=== PATIENT | male | born 1935 | race Caucasian/White ===

== ENCOUNTER → 2018-11-27 | Outpatient (CLI) | payer MEDICARE ==
[2018-11-27 14:02] LABS: Source, Urine Clean Catch
[2018-11-27 14:33] LABS: Bilirubin, Urine Neg (Neg); Blood, Urine Neg (Neg); Glucose Qualitative, Urine 4+ (Neg); Ketones, Urine Neg (Neg); Leukocyte Esterase, Urine Neg (Neg); Nitrite, Urine Neg (Neg); Protein, Urine 3+ (Neg); Urobilinogen, Urine NORM (Normal)
[2018-11-27 14:44] LABS: Appearance, Urine Clear (Clear); Color, Urine Yellow (P-Yellow)
[2018-11-27 14:46] LABS: Bacteria Few /hpf; Red Blood Cells, Urine Not Seen /hpf (0-2); Squamous Epithelial Cells Not Seen /hpf (Few); White Blood Cells, Urine Not Seen /hpf (0-5)
== END | disposition home or self-care (01) ==
LOC: LAB SHORT 13:58 → LAB 13:58
PROVIDERS: Family Medicine
DX: N39.0 Urinary tract infection, site not specified (principal)
CPT/HCPCS: 81001

== ENCOUNTER → 2020-06-03 | Outpatient (CLI) | payer MEDICARE ==
[2020-06-03 19:54] LABS: Albumin, Blood 4.1 g/dL (3.4-5.0); Albumin/Globulin Ratio 1.2 (0.8-1.8); Bilirubin, Total 0.3 mg/dL (0.1-1.0); Bun/Creatinine Ratio 16.3 (12.0-20.0); Calcium, Blood 9.3 mg/dL (8.5-10.1); Creatinine, Blood 1.47 mg/dL (0.60-1.20); Globulin, Blood 3.4 g/dL (2.2-4.0); Potassium, Blood 4.7 mmol/L (3.5-5.5); Total Protein, Blood 7.5 g/dL (6.4-8.2)
== END | disposition home or self-care (01) ==
LOC: LAB 13:42 → LAB SHORT 13:42
PROVIDERS: Family Medicine
DX: E11.9 Type 2 diabetes mellitus without complications (principal); I10 Essential (primary) hypertension
CPT/HCPCS: 80053

== ENCOUNTER → 2020-06-24 | Outpatient (CLI) | payer MEDICARE, OTHER ==
[2020-06-24 19:27] LABS: BASOPHILS ABSOLUTE AUTO 0.03 K/mm3 (0.00-0.23); BASOPHILS PERCENT AUTO 1 % (0-2); EOSINOPHILS ABSOLUTE AUTO 0.03 K/mm3 (0.00-0.68); EOSINOPHILS PERCENT AUTO 1 % (0-6); Hematocrit 38.2 % (37.0-53.0); IMMATURE GRAN ABSOLUTE AUTO 0.06 K/mm3 (0.00-0.10); IMMATURE GRAN PERCENT AUTO 2 % (0-1); LYMPHOCYTES ABSOLUTE AUTO 1.13 K/mm3 (0.84-5.20); LYMPHOCYTES PERCENT AUTO 32 % (21-46); MONOCYTES ABSOLUTE AUTO 0.47 K/mm3 (0.16-1.47); MONOCYTES PERCENT AUTO 14 % (4-13); Mean Corpuscular HGB 28.8 pg (26.0-34.0); Mean Corpuscular HGB Conc 31.4 g/dL (31.5-36.5); Mean Corpuscular Volume 92 fL (80-100); Mean Platelet Volume 10.1 fL (9.1-12.4); NEUTROPHILS ABSOLUTE AUTO 1.77 K/mm3 (1.96-9.15); NEUTROPHILS PERCENT AUTO 51 % (41-73); Platelet Count 219 K/mm3 (150-400); RDW Coefficient Variation 16.3 % (11.7-14.2); RDW Standard Deviation 53.6 fL (35.1-46.3); Red Blood Cell Count 4.16 M/mm3 (4.30-5.90); White Blood Cell Count 3.49 K/mm3 (4.00-11.30)
== END | disposition home or self-care (01) ==
LOC: LAB 19:01 → LAB SHORT 19:01
PROVIDERS: Family Medicine
DX: E11.9 Type 2 diabetes mellitus without complications (principal); I10 Essential (primary) hypertension; G30.1 Alzheimer's disease with late onset; F02.81 Dementia in other diseases classified elsewhere, unspecified severity, with behavioral disturbance
CPT/HCPCS: 83036; 85025

== ENCOUNTER 2020-08-20 11:30 | Inpatient (IN) | payer MEDICARE, OTHER ==
[~2020-08-20] VITALS: Ht 180.3 cm; Wt 81.7 kg
[2020-08-20 13:01] LABS: BASOPHILS ABSOLUTE AUTO 0.04 K/mm3 (0.00-0.23); BASOPHILS PERCENT AUTO 0 % (0-2); EOSINOPHILS ABSOLUTE AUTO 0.02 K/mm3 (0.00-0.68); EOSINOPHILS PERCENT AUTO 0 % (0-6); Hematocrit 36.8 % (37.0-53.0); Hemoglobin 11.6 g/dL (13.5-17.5); IMMATURE GRAN ABSOLUTE AUTO 0.18 K/mm3 (0.00-0.10); IMMATURE GRAN PERCENT AUTO 2 % (0-1); LYMPHOCYTES ABSOLUTE AUTO 1.04 K/mm3 (0.84-5.20); LYMPHOCYTES PERCENT AUTO 9 % (21-46); MONOCYTES ABSOLUTE AUTO 2.04 K/mm3 (0.16-1.47); MONOCYTES PERCENT AUTO 17 % (4-13); Mean Corpuscular HGB 29.5 pg (26.0-34.0); Mean Corpuscular HGB Conc 31.5 g/dL (31.5-36.5); Mean Corpuscular Volume 94 fL (80-100); NEUTROPHILS ABSOLUTE AUTO 8.63 K/mm3 (1.96-9.15); NEUTROPHILS PERCENT AUTO 72 % (41-73); Platelet Count 256 K/mm3 (150-400); RDW Coefficient Variation 16.1 % (11.7-14.2); RDW Standard Deviation 54.3 fL (35.1-46.3); Red Blood Cell Count 3.93 M/mm3 (4.30-5.90); White Blood Cell Count 11.95 K/mm3 (4.00-11.30)
[2020-08-20 13:27] LABS: Alanine Aminotransfer (ALT/SGP 26 U/L (12-78); Albumin, Blood 3.2 g/dL (3.4-5.0); Albumin/Globulin Ratio 0.8 (0.8-1.8); Alk Phos 124 U/L (50-136); Anion Gap 8 mmol/L (6-16); Aspartate Aminotrans (AST/SGOT 12 U/L (12-37); Bilirubin, Total 0.9 mg/dL (0.1-1.0); Blood Urea Nitrogen 35 mg/dL (8-24); Bun/Creatinine Ratio 19.4 (12.0-20.0); CO2, Blood 21 mmol/L (21-32); Calcium, Blood 8.7 mg/dL (8.5-10.1); Chloride, Blood 111 mmol/L (98-108); Ethanol (Alcohol), Blood, Med <3 mg/dL; Globulin, Blood 4.1 g/dL (2.2-4.0); Glomerular Filtration Rate 38 (60-); Glucose, Blood 264 mg/dL (70-99); Potassium, Blood 4.9 mmol/L (3.5-5.5); Sodium, Blood 140 mmol/L (136-145); Total Protein, Blood 7.3 g/dL (6.4-8.2); Troponin I <0.015 ng/mL (0.000-0.040)
[2020-08-20 15:31] LABS: Source, Urine Clean Catch
[2020-08-20 15:35] LABS: Appearance, Urine Clear (Clear); Bilirubin, Urine Neg (Neg); Blood, Urine Neg (Neg); Color, Urine Amber (P-Yellow); Glucose Qualitative, Urine Neg (Neg); Ketones, Urine Neg (Neg); Leukocyte Esterase, Urine 1+ (Neg); Nitrite, Urine Neg (Neg); Protein, Urine 2+ (Neg); Specific Gravity, Urine 1.025 (1.003-1.022); Urobilinogen, Urine NORM (Normal)
[2020-08-20 15:41] LABS: Red Blood Cells, Urine 0-2 /hpf (0-2)
[2020-08-20 15:42] LABS: Bacteria Few /hpf; Mucus Light (0-Heavy); Squamous Epithelial Cells Rare /hpf (Few)
[2020-08-20 15:48] LABS: U Amphetamine Screen Not Detected; U Barbituate Screen Not Detected; U Benzodiazapine Screen DETECTED; U Buprenorphine Screen Not Detected; U Cannabinoids Screen Not Detected; U Cocaine Screen Not Detected; U Methadone Screen Not Detected; U Methamphetamine Screen Not Detected; U Opiates Screen Not Detected; U Oxycodone Screen Not Detected; U Phencyclidine Screen Not Detected; U Propoxyphene Screen Not Detected
[2020-08-20] MEDS ORDERED: PROZAC40 MG PO (16:33)
[2020-08-20] MEDS ORDERED: LABE100 PO (16:34)
[2020-08-20] MEDS ORDERED: ACYCLOVIR800 MG PO (16:53)
[2020-08-20] MEDS ORDERED: MELATONIN1 M1 PO (16:55)
[2020-08-20] MEDS ORDERED: ASPI81CH PO (16:56)
[2020-08-20] MEDS ORDERED: TOPICAINE113 GM TOP (16:58)
[2020-08-20] MEDS ORDERED: LISI20 PO (16:59)
[2020-08-20] MEDS ORDERED: Seroquel Xr50 MG PO (16:59)
[2020-08-20] MEDS ORDERED: IBUP400 PO (16:59)
[2020-08-20] MEDS ORDERED: TRAM50 PO (16:59)
[2020-08-20] MEDS ORDERED: RISPERIDONE2 M2 PO (16:59)
[2020-08-20] MEDS ORDERED: Nitrofurantoin100 M1 PO (16:59)
[2020-08-20] MEDS ORDERED: MELA3 PO (17:28)
[2020-08-20] MEDS ORDERED: RISPERIDONE1 M2 PO (17:30)
[2020-08-20] MEDS ORDERED: MIRALAX17 GM PO (17:32)
[2020-08-20] MEDS ORDERED: ACET325 PO (17:33)
[2020-08-20] MEDS ORDERED: ALUM-MAG HYDROX30 ML PO (17:33)
[2020-08-20] MEDS ORDERED: LOPE2C PO (17:34)
[2020-08-20] MEDS ORDERED: BISA10S PR (17:34)
[2020-08-20] MEDS ORDERED: DULCOLAX400 MG/5 M PO (17:35)
[2020-08-20] MEDS ORDERED: NYSTATIN-TRIAMC15 GM TOP (17:36)
[2020-08-20] MEDS ORDERED: TRIPLE ABX TOP (17:36)
[2020-08-20 18:19] LABS: Adenovirus Not Detected (NOT DETECT); Bordetella pertussis Not Detected (NOT DETECT); Chlamydophila pneumoniae Not Detected (NOT DETECT); Coronavirus 229E Not Detected (NOT DETECT); Coronavirus HKU1 Not Detected (NOT DETECT); Coronavirus NL63 Not Detected (NOT DETECT); Coronavirus OC43 Not Detected (NOT DETECT); Human Metapneumovirus Not Detected (NOT DETECT); Human Rhinovirus/Enterovirus Not Detected (NOT DETECT); Influenza A/2009-H1 Not Detected (NOT DETECT); Influenza A/H1 Not Detected (NOT DETECT); Influenza A/H3 Not Detected (NOT DETECT); Influenza B Not Detected (NOT DETECT); Mycoplasma pneumoniae Not Detected (NOT DETECT); Parainfluenza Virus 1 Not Detected (NOT DETECT); Parainfluenza Virus 2 Not Detected (NOT DETECT); Parainfluenza Virus 3 Not Detected (NOT DETECT); Parainfluenza Virus 4 Not Detected (NOT DETECT); Respiratory Syncytial Virus Not Detected (NOT DETECT); SARS-Cov-2 (COVID-19), BioFire Not Detected (NOT DETECT)
--- NOTE | 2020-08-21 04:29 | NUR ---
SHIFT SUMMARY ASSUMED CARE OF PT AT 1950. PT IS ONLY ALERT TO SELF. PT GIOVANI OUT "HEY" WHEN PEOPLE PASS HIS ROOM OR COME INTO HIS ROOM BUT HE CANNOT MAKE HIS NEEDS KNOWN. PT CAN ANSWER YES/NO QUESTIONS. PT WILL CRY OUT WHEN ROLLED OVER. HEART SOUNDS REGULAR, LUNG SOUNDS HAVE CRACKLES IN THE BASES. PT WAS INCONTIENT OF URINE T/O THE NIGHT. PT HAS SHINGLES ON HIS CHEST, THEY ARE CRUSTED OVER, MEDICATED PER EMAR. PT HAS GENERALISED SWELLING T/O HIS BODY. EXTREMITIES ARE DISCOLORED AND COOL TO TOUCH. PT HAS VERY DRY SKIN. PT WAS ABLE TO TAKE MEDS WHOLE WITH APPLE SAUCE BUT POCKETED ONE MEDICATED AND SPIT IT OUT LATER, PT ABLE TO DRINK WATER W/O A STRAW. CALL LIGHT IN REACH, BED IN LOWEST POSITON.
[2020-08-21 04:58] LABS: BASOPHILS ABSOLUTE AUTO 0.02 K/mm3 (0.00-0.23); BASOPHILS PERCENT AUTO 0 % (0-2); EOSINOPHILS ABSOLUTE AUTO 0.03 K/mm3 (0.00-0.68); EOSINOPHILS PERCENT AUTO 0 % (0-6); Hematocrit 33.4 % (37.0-53.0); Hemoglobin 10.8 g/dL (13.5-17.5); IMMATURE GRAN ABSOLUTE AUTO 0.07 K/mm3 (0.00-0.10); IMMATURE GRAN PERCENT AUTO 1 % (0-1); LYMPHOCYTES ABSOLUTE AUTO 1.26 K/mm3 (0.84-5.20); LYMPHOCYTES PERCENT AUTO 15 % (21-46); MONOCYTES ABSOLUTE AUTO 1.46 K/mm3 (0.16-1.47); MONOCYTES PERCENT AUTO 18 % (4-13); Mean Corpuscular HGB Conc 32.3 g/dL (31.5-36.5); Mean Corpuscular Volume 90 fL (80-100); Mean Platelet Volume 9.6 fL (9.1-12.4); NEUTROPHILS ABSOLUTE AUTO 5.43 K/mm3 (1.96-9.15); NEUTROPHILS PERCENT AUTO 66 % (41-73); Platelet Count 252 K/mm3 (150-400); RDW Coefficient Variation 15.9 % (11.7-14.2); RDW Standard Deviation 51.8 fL (35.1-46.3); Red Blood Cell Count 3.72 M/mm3 (4.30-5.90); White Blood Cell Count 8.27 K/mm3 (4.00-11.30)
[2020-08-21 05:15] LABS: Bun/Creatinine Ratio 22.2 (12.0-20.0); Calcium, Blood 8.6 mg/dL (8.5-10.1); Creatinine, Blood 1.44 mg/dL (0.60-1.20)
--- NOTE | 2020-08-21 11:48 | NUR ---
[facility] NURSE CONTACT JACKI VALENZUELA FOR [facility] CELL# [phone]
--- NOTE | 2020-08-21 18:24 | NUR ---
SHIFT SUMMARY PT MORE AWAKE & ALERT THIS AFTERNOON. ALERT TO SELF ONLY. CALLING OUT INTO THE HALLWAY, LOUDLY. PT UNABLE TO BE REORIENTED. DR. STEPHENSON NOTIFIED OF PT BEHAVIOR. ORDER FOR 5MG SL ZYPREXA OBTAINED. PT REPOSITIONED IN BED T/O SHIFT. VERY STIFF WITH TURNING. PT STARTED TO SPIT WHEN BEING FED THIS AFTERNOON. PRN ZYPREXA GIVEN. [facility] HAD A BM YESTERDAY. NO OTHER ACUTE CHANGES IN ASSESSMENT AT THIS TIME. VS REVIEWED. PT REFUSED DINNER, BUT RESTING IN BED CURRENLTY. BED ALARM ON.
--- NOTE | 2020-08-22 00:43 | NUR ---
08/21/201934 PT RESTING COMFORTABLY AND QUIETLY IN BED WITH HEAD OF BED AT SEMI FOWLERS. 0030 RESTING QUIETLY.
--- NOTE | 2020-08-22 04:54 | NUR ---
SHIFT SUMMARY: 85 Y/O MALE RESTED COMFORTABLY ALL SHIFT WITH NO YELLINHG OUTBURSTS IN INAPPROPRIATE BEHAVIOR NOTED; PT NOTED HAVE DIFFICULTY SWALLOWING WHOLE PILL OF COLACE LAST NOC IN APPLESAUCE WHICH WAS HELD BY NURSING (DAYSHIFT RN TO BE ADVISED TO CONTACT ATTENDING MD FOR POSSIBLE SWALLOWING EVALUATION AND TO CHANGE COLACE TO LIQUID VERSUS CAPSULE); DENIES PAIN OR NAUSEA; BED ALARM APPLIED FOR SAFETY, BED LOW POSITION WITH CALL LIGHT AT SIDE.
[2020-08-22 05:22] LABS: BASOPHILS ABSOLUTE AUTO 0.02 K/mm3 (0.00-0.23); BASOPHILS PERCENT AUTO 0 % (0-2); EOSINOPHILS ABSOLUTE AUTO 0.03 K/mm3 (0.00-0.68); EOSINOPHILS PERCENT AUTO 1 % (0-6); Hematocrit 31.2 % (37.0-53.0); Hemoglobin 10.6 g/dL (13.5-17.5); IMMATURE GRAN ABSOLUTE AUTO 0.05 K/mm3 (0.00-0.10); IMMATURE GRAN PERCENT AUTO 1 % (0-1); LYMPHOCYTES ABSOLUTE AUTO 1.22 K/mm3 (0.84-5.20); LYMPHOCYTES PERCENT AUTO 24 % (21-46); MONOCYTES ABSOLUTE AUTO 0.96 K/mm3 (0.16-1.47); MONOCYTES PERCENT AUTO 19 % (4-13); Mean Corpuscular Volume 88 fL (80-100); Mean Platelet Volume 9.7 fL (9.1-12.4); NEUTROPHILS ABSOLUTE AUTO 2.78 K/mm3 (1.96-9.15); NEUTROPHILS PERCENT AUTO 55 % (41-73); Platelet Count 255 K/mm3 (150-400); RDW Coefficient Variation 15.8 % (11.7-14.2); Red Blood Cell Count 3.53 M/mm3 (4.30-5.90); White Blood Cell Count 5.06 K/mm3 (4.00-11.30)
[2020-08-22 05:43] LABS: Bun/Creatinine Ratio 21.4 (12.0-20.0); Calcium, Blood 8.4 mg/dL (8.5-10.1); Creatinine, Blood 1.31 mg/dL (0.60-1.20); Potassium, Blood 3.9 mmol/L (3.5-5.5)
--- NOTE | 2020-08-22 17:38 | NUR ---
SHIFT SUMMARY PT HAD POOR APPETITE TODAY. TOLERATING PUREE AND THIN LIQUID FROM A CUP ONLY WHEN AWAKE & ALERT. PT VERY CONFUSED STILL. HX ADVANCED DEMENTIA WITH BEHAVIOR PROBLEMS. PT CALLING OUT INTO HALLWAY LOUDLY MIDSHIFT TODAY. PRN ZYPREXA GIVEN AT THIS TIME. PT MOSTLY CALM SINCE. NO ACUTE CHANGES IN ASSESSMENT AT THIS TIME. VS REVIEWED. PT MAY BENEFIT FROM A SWALLOW EVEL. MD NOTIFED OF THIS REQUEST. PT RESTING IN BED. INCONT T/O DAY. TOLERATING REPOSITIONS WELL. JACKI VALENZUELA FROM [facility] UPDATED ON PT CONDITION.
--- NOTE | 2020-08-22 21:25 | NUR ---
1934 REPORT RECEIVED FROM JACKI NESS; ALERT TO PERSON ONLY; MUMBLING INCOHERENT WORDS TO SELF; BED ALARM APPLIED FOR SAFETY. 2100 PT TOOK ALL H.S. MEDS WITHOUT ISSUE.
--- NOTE | 2020-08-23 03:33 | NUR ---
SHIFT SUMMARY: 85 Y/O MALE RESTED COMFORTABLY ALL SHIFT AFTER TAKING ALL H.S. MEDS CRUSHED IN APPLESAUCE EXCEPT COLACE TABS WHICH CANT BE CRUSHED AND PT HAS DIFFICULTY SWALLOWING THIS MEDICATION; ALERT PERSON ONLY; PT APPEARS TO HAVE NO PAIN; BED ALARM APPLIED FOR SAFETY; BED LOW POSITION WITH CALL LIGHT AT SIDE.
--- NOTE | 2020-08-23 19:33 | NUR ---
SHIFT SUMMARY PT HAS HAD A GOOD DAY WITH MINIMAL CALLING OUT. PT ORAL INTAKE IMPOROVED WELL. ASSISTANCE NEEDED DURING MEALS. LARGE/LOOSE BM TODAY DURING A BEDBATH. NO ACUTE CHANGES IN ASSESSMENT AT THIS TIME. PT TOLERATING PUREE DIET WELL. VS REVIEWED & STABLE. PT RESTING IN BED AFTER EATING. CALL LIGHT IN REACH. REPORT GIVEN TO JACKI LUNSFORD.
--- NOTE | 2020-08-24 06:06 | NUR ---
SHIFT SUMMARY ALERT, ABLE TO MAKE NEEDS KNOWN. COOPERATIVE WITH CARE. NO C/O PAIN/DISCOMFORT. MINIMAL PO INTAKE OVERNIGHT. APPEARED TO REST MUCH OF THE NIGHT. NOTED TO BE HYPERTENSIVE THIS AM; WILL RE-CHECK ONCE MORE. APPEARS TO BE A TREND WITH BLOOD PRESSURE. NO OTHER ACUTE CHANGES NOTED. BED REMAINED IN LOWEST POSITION. REPOSITIONED T/O SHIFT WELL ROUTINE BREIF CHECKS. BED REMAINS IN LOWEST POSITION; ALARM ON. CALL LIGHT AND BELONGINGS WITHIN REACH. CONTINUE WITH CURRENT PLAN OF CARE. REPORT TO ONCOMING RN.
--- NOTE | 2020-08-24 11:55 | NUR ---
DISCHARGE PT IS A/O X1, HX DEMENTIA. HE IS CALM/PLEASANT. DR CASAS IN TO ASSESS, STATE READY FOR D/C HOME, PLACE ORDERS. DRAMATIC AGENT ARRANGE W/C VAN TRANSFER FOR 1300 TODAY. [facility] NOTIFIED. IV D/C INTACT. PT ASSISTED TO GATHER BELONGINGS. AWAITING TRANSPRTATION HOME.
[2020-08-24] MEDS ORDERED: DOCU100 PO (12:16)
[2020-08-24] MEDS ORDERED: AMOCLA875 PO (12:16)
[2020-08-24] MEDS ORDERED: Norco 5-325 Ta1 EACH PO (12:17)
[2020-08-24] MEDS ORDERED: HUMALOG KW100 UNIT/1 SC (12:19)
[2020-08-24] MEDS ORDERED: OLAN5A MM (12:21)
== END 2020-08-24 13:35 | disposition home or self-care (01) | DRG 193 ==
LOC: ER 11:30 → MEDS 11:31 → ENPENDDIS 08-24 12:20 → MEDS 08-24 13:35
PROVIDERS: Emergency Medicine; Internal Medicine; Nurse Practitioner Acute Care; ADMIT Internal Medicine
DX: J18.9 Pneumonia, unspecified organism (principal); G92 Toxic encephalopathy; N17.9 Acute kidney failure, unspecified; Z20.822 Contact with and (suspected) exposure to COVID-19; I12.9 Hypertensive chronic kidney disease with stage 1 through stage 4 chronic kidney disease, or unspecified chronic kidney disease; E11.22 Type 2 diabetes mellitus with diabetic chronic kidney disease; N18.31 Chronic kidney disease, stage 3a; G30.1 Alzheimer's disease with late onset; F02.80 Dementia in other diseases classified elsewhere, unspecified severity, without behavioral disturbance, psychotic disturbance, mood disturbance, and anxiety; B02.9 Zoster without complications; Z66 Do not resuscitate
CPT/HCPCS: 0202U; 36415; 51701; 70450; 71046; 80048; 80053; 81001; 82947; 83735; 84145; 84484; 85025; 93005; 93010; 94640; 94760; 96361-59; 96365-59; 96367-59; 96372; 96375-59; 96376; 99285-25; A9270; G0378; G0480; J0456; J0696; J1644; J7030; J7050; J7120

== ENCOUNTER → 2020-10-28 | Outpatient (CLI) | payer MEDICARE, OTHER ==
[~2020-10-28] MED LIST: ACET325 PO; ACYCLOVIR800 MG PO; ALUM-MAG HYDROX30 ML PO; AMOCLA875 PO; ASPI81CH PO; BISA10S PR; DOCU100 PO; DULCOLAX400 MG/5 M PO; HUMALOG KW100 UNIT/1 SC; IBUP400 PO; LABE100 PO; LISI20 PO; LOPE2C PO; MELA3 PO; MELATONIN1 M1 PO; MIRALAX17 GM PO; NYSTATIN-TRIAMC15 GM TOP; Nitrofurantoin100 M1 PO; Norco 5-325 Ta1 EACH PO; OLAN5A MM; PROZAC40 MG PO; RISPERIDONE1 M2 PO; RISPERIDONE2 M2 PO; Seroquel Xr50 MG PO; TOPICAINE113 GM TOP; TRAM50 PO; TRIPLE ABX TOP
== END ==
LOC: PLD 12:29 → LAB SHORT 12:29
DX: Z51.81 Encounter for therapeutic drug level monitoring (principal); E11.9 Type 2 diabetes mellitus without complications; G47.00 Insomnia, unspecified; G30.9 Alzheimer's disease, unspecified; F02.81 Dementia in other diseases classified elsewhere, unspecified severity, with behavioral disturbance; M19.011 Primary osteoarthritis, right shoulder; M75.01 Adhesive capsulitis of right shoulder; I10 Essential (primary) hypertension; Z79.899 Other long term (current) drug therapy
CPT/HCPCS: 83036

== ENCOUNTER 2021-05-04 12:53 | Inpatient (IN) | payer MEDICARE, OTHER ==
[~2021-05-04] VITALS: Ht 175.3 cm; Wt 79.5 kg
[~2021-05-04 12:53] MED LIST changes: -ASPI81CH PO; +Aspir 8181 MG PO; +MELATONIN PYRIDOXINE PO; -MELATONIN1 M1 PO
[2021-05-04 15:38] LABS: Base Excess Venous -7.5 mmol/L; Bicarbonate Venous 18.4 mmol/L (24.0-30.0); PCO2 Venous 45.6 mmHg (38-42); PO2 Venous 64.1 mmHg (38-42)
[2021-05-04 15:39] LABS: BASOPHILS ABSOLUTE AUTO 0.01 K/mm3 (0.00-0.23); BASOPHILS PERCENT AUTO 0 % (0-2); EOSINOPHILS PERCENT AUTO 0 % (0-6); Hematocrit 32.6 % (37.0-53.0); Hemoglobin 10.6 g/dL (13.5-17.5); IMMATURE GRAN ABSOLUTE AUTO 0.05 K/mm3 (0.00-0.10); IMMATURE GRAN PERCENT AUTO 1 % (0-1); LYMPHOCYTES ABSOLUTE AUTO 0.78 K/mm3 (0.84-5.20); LYMPHOCYTES PERCENT AUTO 17 % (21-46); MONOCYTES ABSOLUTE AUTO 0.69 K/mm3 (0.16-1.47); MONOCYTES PERCENT AUTO 15 % (4-13); Mean Corpuscular HGB 28.6 pg (26.0-34.0); Mean Corpuscular HGB Conc 32.5 g/dL (31.5-36.5); Mean Corpuscular Volume 88 fL (80-100); NEUTROPHILS ABSOLUTE AUTO 2.99 K/mm3 (1.96-9.15); NEUTROPHILS PERCENT AUTO 66 % (41-73); Platelet Count 86 K/mm3 (150-400); RDW Coefficient Variation 16.7 % (11.7-14.2); White Blood Cell Count 4.52 K/mm3 (4.00-11.30); pH Blood Venous 7.25 (7.34-7.37)
[2021-05-04 16:00] LABS: Albumin, Blood 2.4 g/dL (3.4-5.0); Albumin/Globulin Ratio 0.6 (0.8-1.8); Bilirubin, Direct 0.2 mg/dL (0.0-0.3); Bilirubin, Indirect 0.3 mg/dL (0.1-0.7); Bilirubin, Total 0.5 mg/dL (0.1-1.0); Bun/Creatinine Ratio 22.8 (12.0-20.0); Calcium, Blood 7.8 mg/dL (8.5-10.1); Creatinine, Blood 2.76 mg/dL (0.60-1.20); Magnesium, Blood 2.8 mg/dL (1.6-2.4); Potassium, Blood 4.4 mmol/L (3.5-5.5); Total Protein, Blood 6.4 g/dL (6.4-8.2); Troponin I 0.104 ng/mL (0.000-0.040)
[2021-05-04 18:59] LABS: SARS-Cov-2 (COVID-19) PCR, MMC POSITIVE (NEGATIVE)
--- NOTE | 2021-05-05 04:07 | NUR ---
SHIFT SUMMARY ADMITTED FOR COVID+/SOPHIA. DNR CODE. PT SLEPT THROUGHOUT SHIFT. HE WILL NOT WAKE TO TAKE ANYTHING PO. HE WOKE ONLY ONCE THIS SHIFT, BUT ONLY FOR A MOMENT TO LOOK AT US. WE ARE KEEPING HIM UNOFFICIALLY NPO UNTIL HE IS ALERT ENOUGH TO SWALLOW WITHOUT ASPIRATING. IV FLUIDS INFUSING ORDERED. TELEMETRY: NSR @ 61 BPM.
[2021-05-05 05:36] LABS: Bun/Creatinine Ratio 30.6 (12.0-20.0); Calcium, Blood 7.9 mg/dL (8.5-10.1); Creatinine, Blood 1.96 mg/dL (0.60-1.20); Potassium, Blood 4.8 mmol/L (3.5-5.5); Troponin I 0.06 ng/mL (0.000-0.040)
--- NOTE | 2021-05-05 16:37 | NUR ---
SHIFT SUMMARY PATIENT UNABLE TO VERBALIZE IF HE IS IN PAIN. PATIENT SHOWED NO SIGNS OF BEING IN PAIN. PATIENT GROANS OCCASSIONALLY. PATIENT DID VERBALIZE A FEW WORDS TODAY. SPEECH EVALUATED PATIENT. PATIENT CHANGED TO NPO. AND ALL MEDS TO BE NON-ORAL. PATIENT SLEPT MOST OF SHIFT. PATIENT TITRATED TO ROOM AIR SATURATING AT 92-93%. PALLIATIVE CARE CONSULTED. PATIENT IS ON BEDREST, BUT THE FACILITY HE CAME FROM SAYS THAT HE IS A LIFT AT BASELINE. PATIENT IS PLEASANT AND COOPERATIVE WITH CARE.
[2021-05-06 05:44] LABS: Calcium, Blood 8.4 mg/dL (8.5-10.1); Creatinine, Blood 1.39 mg/dL (0.60-1.20); Potassium, Blood 4.4 mmol/L (3.5-5.5)
--- NOTE | 2021-05-06 05:51 | NUR ---
ANTISQUEAK WORKER SUMMARY PATIENT LODGED NIL FRESH COMPLAINT. HE RSTED WELL. VS STABLE. WILL CONTINUE TO MONITOR PATIENT.
--- NOTE | 2021-05-06 13:12 | NUR ---
Case Conference Note Spoke with Primary JACKI Jurado, and Optical Glass Inspector Ariel. Discussed case and concerns. Pt would benefit from hospice. Facility [facility] at [facility] has started the conversation with Pt's son. JACKI Jurado reports Pt is confused and not able to have any meaningful conversation. Pt requires assistance with bathing, dressing, is incontenent of bowel and bladder. Pt is also bed bound. has recommended NPO for Pt. Pt is also unable to follow direction. Called and spoke with Pt's son Cleveland. Provided update, offered therapeutic listening and answered questions. Cleveland confirms the goal is hospice and does not have a preference for hospice agencies. Cleveland expresses appreciation and reports no concerns at this time. Spoke with Ariel and she reports [facility] is scheduled to admit same day tomorrow. Palliative Care will remain available.
--- NOTE | 2021-05-06 18:06 | NUR ---
PATIENT IS ALERT AND DISORIENTED. HE HAS BEEN NON-VERBAL THIS SHIFT. HE HAS BEEN AWAKE SINCE THIS MORNING. ON RA. Q2H TURNS. ATTENDS IN PLACE AND CHANGED NEEDED. HE HAD BM TODAY. PLAN IS TO DC HOME ON HOSPICE TOMORROW. BEDREST. WILL CONTINUE TO MONITOR
[2021-05-07 06:18] LABS: Bun/Creatinine Ratio 33.3 (12.0-20.0); Calcium, Blood 8.5 mg/dL (8.5-10.1); Creatinine, Blood 1.29 mg/dL (0.60-1.20)
--- NOTE | 2021-05-07 06:26 | NUR ---
PATIENT ALERT AND RESPONSIVE, BUT UNABLE TO FOLLOW DIRECTIONS DUE TO ALTERED MENTAL STATUS. PATIENT WAS ON DEXTROSE, BUT NOW DISCONTINUED. PATIENT REMAINS NPO, ALL MEDICATIONS HELD DUE TO NPO STATUS, PATIENT HAD A FAILED SWALLOWED EVALUATION YESTERDAY. ORAL MOUTH CARE DONE, PATIENT REPOSITIONED EVERY 2 HOURS AND BED MAINTAINED IN LOW POSITION. PATIENT WAS INCONTINENT OF URINE X2. WILL CONTINUE TO MONITOR.
--- NOTE | 2021-05-07 09:23 | NUR ---
REPORT CALLED TO JACKI VALENZUELA AT [facility]
== END 2021-05-07 11:53 | disposition hospice, home (50) | DRG 177 ==
LOC: ER 12:53 → MEDS 17:49
PROVIDERS: Student in an Organized Health Care Education/Training Program; ADMIT Internal Medicine
PROC: 8E0ZXY6 Isolation (ICD-10-PCS; principal; 2021-05-04)
PROC: 3E0333Z Introduction of Anti-inflammatory into Peripheral Vein, Percutaneous Approach (ICD-10-PCS; 2021-05-04)
DX: U07.1 COVID-19 (principal); J96.01 Acute respiratory failure with hypoxia; J12.82 Pneumonia due to coronavirus disease 2019; I21.A1 Myocardial infarction type 2; G92.8 Other toxic encephalopathy; N17.9 Acute kidney failure, unspecified; E87.2 Acidosis; I95.9 Hypotension, unspecified; N18.9 Chronic kidney disease, unspecified; E11.22 Type 2 diabetes mellitus with diabetic chronic kidney disease; D63.1 Anemia in chronic kidney disease; I12.9 Hypertensive chronic kidney disease with stage 1 through stage 4 chronic kidney disease, or unspecified chronic kidney disease; F03.90 Unspecified dementia, unspecified severity, without behavioral disturbance, psychotic disturbance, mood disturbance, and anxiety; F32.9 Major depressive disorder, single episode, unspecified; G47.00 Insomnia, unspecified; Z88.1 Allergy status to other antibiotic agents; Z88.8 Allergy status to other drugs, medicaments and biological substances; Z79.4 Long term (current) use of insulin; Z79.82 Long term (current) use of aspirin
CPT/HCPCS: 36415; 70450; 71045; 80048; 80076; 82803; 82947; 83605; 83690; 83735; 84145; 84484; 85025; 87040; 92526; 92610; 93005; 93010; 94762; 96374; 99285-25; A9270; J1100; J1650; J3370; J7030; J7050; J7070; J7120; U0004